=== PATIENT | female | born 1975 | race Caucasian/White ===

== ENCOUNTER → 2017-11-17 13:26 | Outpatient (CLI) | payer BC, SELFPAY ==
--- NOTE | 2017-11-17 13:29 | BI_ITS ---
MAMMOGRAPHY - BILATERAL SCREENING REASON FOR EXAM: Female, 42 years old. Routine annual screening examination. PERTINENT HISTORY: Aunt with breast cancer. TECHNIQUE: Digital bilateral breast betty (3D mammographic acquisition) in the CC and MLO projections. 2-D mediolateral oblique (MLO) and craniocaudad (CC) views of both breasts were obtained. CAD: Full Field Digital Mammography with Computer Added Detection was performed. COMPARISON: Comparison is made with prior study dated November 11, 2016 and November 01, 2015. FINDINGS: Breast Composition: The breasts are heterogeneously dense, which may obscure small masses. There now is evidence of a 1.8 cm x 1.8 cm well-defined nodule in the retroareolar region of the right breast. Correlation with ultrasound is recommended. Stable appearance of the 7 mm well-defined nodule in the central lateral portion of the left breast. This was demonstrated to be a cyst on prior sonogram. No other significant abnormalities are identified. BI/SCREENING MAMM (CAD), BILAT IMPRESSION: There is a new 1.8 cm x 1.7 well-defined nodule in the right breast as described. Correlation with ultrasound is recommended. Stable appearance of the left breast. ASSESSMENT CATEGORY: BIRADS Category 0: Incomplete. Need additional imaging evaluation. A letter regarding these results will be sent to the patient by the facility within 30 days. Approximately 10% of breast cancers are not detected by mammography. A normal mammogram should not delay biopsy of a clinically suspicious abnormality. [id number] Electronically Signed: Dayron Brown MD at 15:41 EDT Tel [phone], Service support ,
== END ==
PROVIDERS: Family Provider Student in an Organized Health Care Education/Training Program; PCP Student in an Organized Health Care Education/Training Program; Visit Provider Obstetrics & Gynecology
DX: Z12.31 Encounter for screening mammogram for malignant neoplasm of breast (principal)
CPT/HCPCS: 77063; 77067

== ENCOUNTER → 2017-11-24 13:00 | Outpatient (CLI) | payer BC, SELFPAY ==
--- NOTE | 2017-11-24 13:03 | US_ITS ---
STUDY: ULTRASOUND BREAST - RIGHT REASON FOR EXAM: Female, 42 years old. Abnormal screening mammogram. TECHNIQUE: Axial and longitudinal images of the RIGHT breast were performed with a high resolution ultrasound transducer. COMPARISON: Comparison is made with prior mammogram dated November 17, 2017. FINDINGS: RIGHT Breast: Multiple cysts are seen in the retroareolar region of the right breast. The largest cyst measures 1.8 cm x 1.8 cm x 1.3 cm. US/Breast Limited Unilateral IMPRESSION: Multiple cysts are seen in the retroareolar region of the right breast. The largest measures 1.8 cm x 1.3 cm x 1.8 cm. ASSESSMENT CATEGORY: BIRADS Category 2: Benign. A letter regarding these results will be sent to the patient by the facility within 30 days. Electronically Signed: Dayron Brown MD at 13:53 EDT Tel [phone], Service support ,
== END ==
PROVIDERS: Family Provider Student in an Organized Health Care Education/Training Program; PCP Student in an Organized Health Care Education/Training Program; Visit Provider Obstetrics & Gynecology
DX: R92.2 Inconclusive mammogram (principal)
CPT/HCPCS: 76642

== ENCOUNTER → 2018-10-07 10:35 | Outpatient (CLI) | payer BC, SELFPAY ==
[2018-10-11 15:27] LABS: HPV Reflexed? NOT INDICATED
== END ==
PROVIDERS: Visit Provider Obstetrics & Gynecology
DX: Z12.4 Encounter for screening for malignant neoplasm of cervix (principal)
CPT/HCPCS: 88175; G0145

== ENCOUNTER → 2018-10-12 13:41 | Outpatient (CLI) | payer BC, SELFPAY ==
--- NOTE | 2018-10-12 13:45 | BI_ITS ---
MAMMOGRAPHY - BILATERAL SCREENING REASON FOR EXAM: Female, 43 years old. Routine annual screening examination. PERTINENT HISTORY: Aunt with breast cancer. TECHNIQUE: Digital bilateral breast betty (3D mammographic acquisition) in the CC and MLO projections. 2-D mediolateral oblique (MLO) and craniocaudad (CC) views of both breasts were obtained. CAD: Full Field Digital Mammography with Computer Added Detection was performed. COMPARISON: Comparison is made with prior study dated November 17, 2017 and November 11, 2016. FINDINGS: Breast Composition: The breasts are heterogeneously dense, which may obscure small masses. There is evidence of a 1.8 cm x 2.3 cm well-defined nodule in the retroareolar region of the right breast. This has increased in size as compared to prior study. There is also evidence of a 2.7 cm x 1.9 cm well-defined nodule in the upper lateral portion of the left breast as well as a 1.6 cm x 1.6 cm nodule in the deep portion of the upper aspect of the left breast. Stable 8 mm nodule in the mid deep portion of the left breast. No other significant abnormalities are identified. BI/SCREENING MAMM (CAD), BILAT IMPRESSION: Bilateral breast nodules as described. These have increased in size as compared to prior study. Follow-up sonogram of both breasts is recommended for further evaluation. ASSESSMENT CATEGORY: BIRADS Category 0: Incomplete. Need additional imaging evaluation. A letter regarding these results will be sent to the patient by the facility within 30 days. Approximately 10% of breast cancers are not detected by mammography. A normal mammogram should not delay biopsy of a clinically suspicious abnormality. [id number] Electronically Signed: Dayron Brown, at 15:54 EST , Service support ,
== END ==
PROVIDERS: Family Provider Student in an Organized Health Care Education/Training Program; PCP Student in an Organized Health Care Education/Training Program; Referring Provider Obstetrics & Gynecology; Visit Provider Obstetrics & Gynecology
DX: Z12.31 Encounter for screening mammogram for malignant neoplasm of breast (principal)
CPT/HCPCS: 77063; 77067

== ENCOUNTER → 2018-10-17 12:29 | Outpatient (CLI) | payer BC, SELFPAY ==
--- NOTE | 2018-10-17 12:31 | US_ITS ---
STUDY: ULTRASOUND BREAST - RIGHT REASON FOR EXAM: Female, 43 years old. Abnormal screening mammogram. TECHNIQUE: Axial and longitudinal images of the RIGHT breast were performed with a high resolution ultrasound transducer. COMPARISON: Comparison is made with prior ultrasound the right breast dated November 24, 2017. FINDINGS: RIGHT Breast: There is a 2.3 cm x 2 cm x 1.6 cm cyst at the 12:00 position of the breast at 1 cm from the nipple. Multiple smaller cysts are also seen. IMPRESSION: Multiple cysts in the right breast. The largest measures 2.3 cm x 2 cm x 1.6 centimeter. This has increased in size as compared to prior study. ASSESSMENT CATEGORY: BIRADS Category 2: Benign. A letter regarding these results will be sent to the patient by the facility within 30 days. Electronically Signed: Dayron Brown, at 9:41 EST , Service support , STUDY: ULTRASOUND BREAST - LEFT REASON FOR EXAM: Female, 43 years old. Abnormal screening mammogram. TECHNIQUE: Axial and longitudinal images of the LEFT breast were performed with a high resolution ultrasound transducer. COMPARISON: Comparison is made with prior mammogram dated October 12, 2018 and prior ultrasound of the left breast dated November 13, 2016. FINDINGS: LEFT Breast: Multiple cysts are seen. The largest measures 1.8 cm x 2 cm x 0.9 cm. This is at the 1:00 position of the breast at 1 cm from the nipple. US/Breast Limited Unilateral IMPRESSION: Multiple left breast cysts. The largest measures 1.8 cm x 2 cm x 0.9 cm ASSESSMENT CATEGORY: BIRADS Category 2: Benign. A letter regarding these results will be sent to the patient by the facility within 30 days. Electronically Signed: Dayron Brown, at 9:42 EST , Service support ,
== END ==
PROVIDERS: Family Provider Student in an Organized Health Care Education/Training Program; PCP Student in an Organized Health Care Education/Training Program; Referring Provider Obstetrics & Gynecology; Visit Provider Obstetrics & Gynecology
DX: R92.8 Other abnormal and inconclusive findings on diagnostic imaging of breast (principal)
CPT/HCPCS: 76642

== ENCOUNTER → 2020-12-13 | Outpatient (CLI) | payer BC, SELFPAY ==
[2018-11-02 08:39] VITALS: BMI 21.2
--- NOTE | 2020-12-13 | LES_PTH ---
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 Radha Guardado MD : [id number] BED: DIS: 12/13/2020 SPEC #: [id number] RECD: 12/16/20 15:08 STATUS: ROCK LIO #: [id number] MICHAEL: 12/13/20 00:[address]: Radha Guardado DEPT: SURGICAL PATHOLOGY RECD BY: Alexandria Dsouza ENTERED: 12/16/20 07:57 SP TYPE: Lesion OTHR DR: No Primary Care Phys Tissues: Skin of eyelid, NOS Procedures: Surgery Specimen Level IV HEADER OPERATION: Excisional biopsy right lower lid lesion PRE-OP DIAGNOSIS: Right lower lid lesion TISSUE SUBMITTED: Right lower lid lesion MICROSCOPIC DIAGNOSIS Lesion of right lower eyelid, biopsy: Intradermal nevus. AM:lyly 12/17/2020 MICROSCOPIC DESCRIPTION Slides are reviewed. GROSS DESCRIPTION Received in fixative is one container labeled with the patient's name and designated right lower lid. The specimen consists of one irregular fragment of light liu soft tissue that measures 0.2 x 0.2 x 0.1 cm. The specimen is totally submitted in one cassette. / AM:lyly 12/16/20 TC:5 CPT: 43220
== END | disposition home or self-care (01) ==
LOC: LABSPEC 15:36
PROVIDERS: Referring Provider Family Medicine; Visit Provider Family Medicine
DX: D22.112 Melanocytic nevi of right lower eyelid, including canthus (principal)
CPT/HCPCS: 88305